=== PATIENT | male | born 1955 | race Caucasian/White ===

== ENCOUNTER → 2024-02-12 08:59 | Outpatient (CLI) | payer OTHER, SELFPAY ==
[2024-02-12 09:52] LABS: Add Manual Diff / Slide Review NO; Basophils Absolute Auto 100 /uL (0-100); Basophils Percent Auto 1.3 % (0-2); Eosinophils Absolute Auto 100 /uL (0-450); Eosinophils Percent Auto 2.4 % (2-4); Hematocrit 39.8 % (41-53); Hemoglobin 13.3 g/dL (13.5-17.5); Lymphocytes Absolute Auto 700 /uL (1100-4500); Lymphocytes Percent Auto 16.2 % (25-40); Mean Corpuscular HGB Conc 33.5 % (30-36); Mean Corpuscular Hemoglobin 33.1 PG (26-34); Mean Corpuscular Volume 98.7 fL (80-100); Monocytes Absolute Auto 400 /uL (0-900); Monocytes Percent Auto 10.6 % (3-14); Neutrophils Absolute Auto 2800 /uL (1500-7000); Neutrophils Percent Auto 69.5 % (50-75); Platelet Count 174 X10^3/uL (150-400); Red Blood Cell Count 4.03 X10^6/uL (4.5-5.9); Red Cell Distribution Width 13.9 % (11.6-14.8)
[2024-02-12 10:07] LABS: Alanine Aminotransferase 32 IU/L (<50); Albumin 4.1 g/dL (3.5-5.0); Alkaline Phosphatase 84 U/L (38-126); Aspartate Aminotransferase 28 IU/L (17-59); Bilirubin Total 0.5 mg/dL (0.2-1.3); Blood Urea Nitrogen 23 mg/dL (9-20); Calcium 9.7 mg/dL (8.4-10.2); Carbon Dioxide 28 mmol/L (22-32); Chloride 100 mmol/L (98-107); Estimated Glomerular Filt Rate > 60 mL/min (>60); Globulin 2.1 g/dL (1.7-4.1); Glucose 89 mg/dL (80-110); HEMOLYSIS < 15 (0-50); Potassium 4.5 mmol/L (3.4-5.1); Sodium 136 mmol/L (137-145); Total Protein 6.2 g/dL (6.3-8.2)
[2024-02-12 10:15] LABS: NT-proBNP (BNP-Adult 18+) 133 pg/mL (<125)
[2024-02-12 10:32] LABS: Creatinine Urine Random 126.08 mg/dL
[2024-02-12 10:33] LABS: Protein (Total) Urine Random < 5 mg/dL (0-12); Protein Creatinine Ratio Urine 0.03 GRAM/24H
[2024-02-15 16:36] LABS: Albumin 3.3 g/dL (2.9-4.4); Alpha-1-Globulin 0.2 g/dL (0.0-0.4); Alpha-2-Globulin 0.8 g/dL (0.4-1.0); Gamma Globulin 0.8 g/dL (0.4-1.8); Globulin Total 2.8 g/dL (2.2-3.9); Immunoglobulin A, Serum 143 mg/dL (61-437); Immunoglobulin G,Serum 630 mg/dL (603-1613); Immunoglobulin M, Serum 37 mg/dL (20-172); Protein, Total 6.1 g/dL (6.0-8.5)
[2024-02-16 20:39] LABS: Free Kappa Lt Chains, Serum 16.4 mg/L (3.3-19.4); Free Lambda Lt Chains,Serum 11.5 mg/L (5.7-26.3)
== END ==
PROVIDERS: Family Provider Internal Medicine Hematology & Oncology; PCP Internal Medicine Hematology & Oncology; Referring Provider Internal Medicine Hematology & Oncology; Visit Provider Internal Medicine Hematology & Oncology
DX: E85.81 Light chain (AL) amyloidosis (principal)
CPT/HCPCS: 36415; 80053; 82570; 82784; 83880; 83883; 84155; 84156; 84165; 84484; 85025; 86334

== ENCOUNTER → 2024-06-06 11:48 | Outpatient (CLI) | payer OTHER, SELFPAY ==
[2024-06-06 12:35] LABS: Hematocrit 37.9 % (41-53); Hemoglobin 12.5 g/dL (13.5-17.5); Mean Corpuscular HGB Conc 33.1 % (30-36); Mean Corpuscular Hemoglobin 32.2 PG (26-34); Mean Corpuscular Volume 97.4 fL (80-100); Platelet Count 191 X10^3/uL (150-400); Red Blood Cell Count 3.89 X10^6/uL (4.5-5.9); White Blood Cell Count 3.5 X10^3/uL (4.5-11.0)
[2024-06-06 13:09] LABS: Alanine Aminotransferase 28 IU/L (<50); Albumin 3.7 g/dL (3.5-5.0); Albumin Globulin Ratio 1.5 (1.0-2.8); Alkaline Phosphatase 88 U/L (38-126); Aspartate Aminotransferase 33 IU/L (17-59); BUN Creatinine Ratio 30.1 (6-22); Bilirubin Total 0.3 mg/dL (0.2-1.3); Blood Urea Nitrogen 22 mg/dL (9-20); Calcium 9.1 mg/dL (8.4-10.2); Carbon Dioxide 31 mmol/L (22-32); Chloride 102 mmol/L (98-107); Estimated Glomerular Filt Rate > 60 mL/min (>60); Globulin 2.4 g/dL (1.7-4.1); Glucose 95 mg/dL (80-110); HEMOLYSIS < 15 (0-50); Potassium 3.8 mmol/L (3.4-5.1); Sodium 137 mmol/L (137-145); Total Protein 6.1 g/dL (6.3-8.2)
[2024-06-06 13:18] LABS: NT-proBNP (BNP-Adult 18+) 170 pg/mL (<125)
[2024-06-08 21:40] LABS: Free Kappa Lt Chains, Serum 16.9 mg/L (3.3-19.4); Free Lambda Lt Chains,Serum 12.3 mg/L (5.7-26.3)
== END ==
PROVIDERS: Family Provider Internal Medicine Hematology & Oncology; PCP Internal Medicine Hematology & Oncology; Referring Provider Internal Medicine Hematology & Oncology; Visit Provider Internal Medicine Hematology & Oncology
DX: E85.81 Light chain (AL) amyloidosis (principal)
CPT/HCPCS: 36415; 80053; 82784; 83880; 83883; 84155; 84165; 85027; 86334

== ENCOUNTER → 2024-06-11 12:34 | Outpatient (CLI) | payer OTHER, SELFPAY ==
--- NOTE | 2024-06-11 12:37 | DI.RAD.S_ITS ---
PROCEDURE: XR HIP W PEL IF DONE RT 2V INDICATIONS: Presence of right artificial hip joint TECHNIQUE: AP pelvis with lateral view(s) of the right hip(s). COMPARISON: [facility], , XR PELVIS WITH LATERAL HIP RIGHT, 09/03/2023, 8:11. FINDINGS: Bones: Stable postsurgical changes of right total hip arthroplasty without evidence for hardware complication. Stable postsurgical alignment. No fractures or dislocations. Pelvic ring appears intact. No suspicious bony lesions. Moderate degenerative changes of the lower lumbar spine. Degenerative changes of the left hip not significantly changed. Soft tissues: The visualized bowel gas pattern is normal. No suspicious soft tissue calcifications. Pelvic phleboliths. IMPRESSION: Status post right total hip arthroplasty without hardware complication. Degenerative changes of the left hip. Lower lumbar spondylosis. Dictated by: Aroldo Hawk M.D. on 06/11/2024 at 16:50 Approved by: Aroldo Hawk M.D. on 06/11/2024 at 16:52
== END ==
PROVIDERS: Family Provider Internal Medicine Hematology & Oncology; PCP Internal Medicine Hematology & Oncology; Referring Provider Student in an Organized Health Care Education/Training Program; Visit Provider Student in an Organized Health Care Education/Training Program
DX: Z96.641 Presence of right artificial hip joint (principal); M47.816 Spondylosis without myelopathy or radiculopathy, lumbar region
CPT/HCPCS: 73502